=== PATIENT | female | born 1960 | race American Indian/Alaskan Native ===

== ENCOUNTER 2017-04-04 17:59 | Emergency (ER) | payer SELFPAY ==
[~2017-04-04] VITALS: Ht 157.5 cm; Wt 75.0 kg
[2017-04-04 18:17] VITALS: BP 130/80
--- NOTE | 2017-04-04 19:50 | NUR ---
PATIENT LEFT WITHOUT BEING SEEN BY DR. MONTERO. NO FURTHER CARE PROVIDED FOR PATIENT.
--- NOTE | 2017-04-04 19:50 | NUR ---
CALLED BY TYPE MAPPER, NO ANSWER
== END 2017-04-04 19:50 | disposition left against medical advice (07) ==
LOC: MED 17:59
DX: R10.9 Unspecified abdominal pain (principal); Z53.21 Procedure and treatment not carried out due to patient leaving prior to being seen by health care provider
CPT/HCPCS: 81025